=== PATIENT | male | born 1955 ===

== ENCOUNTER 2021-05-17 10:37 | Emergency (ER) | payer SELFPAY ==
[2021-05-17] MEDS ORDERED: Sodium Chloride 0.9% 10 ML Syringe FLUSH PRN (10:57)
[2021-05-17] MEDS ORDERED: Sodium Chloride 0.9% 2.5 ML Syringe FLUSH PRN (10:57)
--- NOTE | 2021-05-17 11:07 | EDM.PDOC ---
ED HPI GENERAL MEDICAL PROBLEM - General Chief Complaint: Respiratory Problem Stated Complaint: LOW OXEGYEN Time Seen by Provider: 05/17/21 10:50 Source of Information: Reports: Patient History Limitations: Reports: No Limitations - History of Present Illness INITIAL COMMENTS - FREE TEXT/NARRATIVE: 65-year-old male h/o Hep A presents with left-sided chest pain and hypoxia. He was tested positive for Covid on 05/07. Last night around 7 PM he started noticing sharp nonradiating left-sided chest pain his friend noted that he was satting 76% on room air. He was not vaccinated against Covid. He admits to feeling short of breath, sweats, malaise with a cough. His chest pain is rated 7/10. He denies fever, chills, back pain, abdominal pain. He is from [facility] and does not speak British. He has been here since November. History and review of system is limited secondary to language barrier, history obtained through bacteriology professor phone. Past medical history: No additional pertinent history Past Surgical history: No additional pertinent history Social history: No additional pertinent history Family history: No additional pertinent history PHYSICAL EXAM General: AOx4, GCS = 15, No distress HEENT: dry mucous membrane Neck: supple, no meningismus, no Kernig or Brudzinski Cardiac: S1S2 tachycardia Respiratory: CTAB, no crackles or rales, no wheezing Abdomen: Soft, nontender, no rebound or guarding, nondistended, no pulsatile mass. Back: nontender Musculoskeletal: NVI distally, no deformity Neuro: No focal deficits, CN 2 - 12 WNL. - Related Data Allergies Allergy/AdvReac Type Severity Reaction Status Date / Time No Known Allergies Allergy Verified 05/17/21 10:50 Home Meds: Home Meds Ibuprofen 200 mg PO 05/17/21 [History] ED ROS GENERAL - Review of Systems Review Of Systems: See Below (see dictation) ED EXAM, GENERAL - Physical Exam Exam: See Below (see dictation) #1 Interpretation EKG Interpretation Comments: Heart rate = 108 bpm, sinus tachycardia, normal QRS interval, V1 to V2 STEMI with Q waves. EKG and rhythm strip interpreted by me at 1108 #2 Interpretation EKG Interpretation Comments: Heart rate = 99 bpm, normal sinus rhythm, normal QRS interval, V1-V2 STEMI. TW inversion on III, AVF. EKG and rhythm strip interpreted by me at 1223 Course - Vital Signs Last Recorded V/S: Last Vital Signs Temp 97.0 F 05/17/21 10:58 Pulse 107 H 05/17/21 10:58 Resp 16 05/17/21 10:58 BP 132/96 H 05/17/21 12:20 Pulse Ox 95 05/17/21 10:58 - Orders/Labs/Meds Orders: Active Orders 24 hr Category Date Time Status EKG 12 Lead [EKG Documentation Completion] [RC] STAT Care 05/17/21 12:24 Active CTA Chest W WO Contrast [Ang Chest] [CT] Stat Exams 05/17/21 12:30 Ordered BLOOD GAS VENOUS [BG] Stat Lab 05/17/21 10:57 Ordered CULTURE BLOOD [BC] Stat Lab 05/17/21 10:58 Ordered CULTURE BLOOD [BC] Stat Lab 05/17/21 10:58 Ordered LACTATE SEPSIS W/ REFLEX [CHEM] Stat Lab 05/17/21 10:57 Ordered PROCALCITONIN [REF] Stat Lab 05/17/21 10:55 Received PTT,PARTIAL THROMBOPLSTIN TIME [COAG] Q6H Lab 05/17/21 11:45 Ordered PTT,PARTIAL THROMBOPLSTIN TIME [COAG] Q6H Lab 05/17/21 17:45 Ordered PTT,PARTIAL THROMBOPLSTIN TIME [COAG] Q6H Lab 05/17/21 23:45 Ordered PTT,PARTIAL THROMBOPLSTIN TIME [COAG] Q6H Lab 05/18/21 05:45 Ordered PTT,PARTIAL THROMBOPLSTIN TIME [COAG] Q6 Lab 05/18/21 11:45 Ordered PTT,PARTIAL THROMBOPLSTIN TIME [COAG] Q6H Lab 05/18/21 17:45 Ordered PTT,PARTIAL THROMBOPLSTIN TIME [COAG] Q6H Lab 05/18/21 23:45 Ordered UA RFX ALEXIS AND CULT IF INDIC [URIN] Stat Lab 05/17/21 10:57 Ordered Heparin Sodium/0.45% NaCl [Heparin 25,000 Units in 1/2 Med 05/17/21 11:45 Active NS 500 ML] 500 ml IV TITRATE Sodium Chloride 0.9% [Saline Flush] Med 05/17/21 10:57 Active 10 ml FLUSH ASDIRECTED PRN Sodium Chloride 0.9% [Saline Flush] Med 05/17/21 10:57 Active 2.5 ml FLUSH ASDIRECTED PRN Blood Culture x2 Reflex Set [OM.PC] Stat Oth 05/17/21 10:57 Ordered Saline Lock Insert [OM.PC] Stat Oth 05/17/21 10:57 Ordered Medication Orders Heparin Sodium/Sodium Chloride (Heparin 25,000 Units In 1/2 Ns 500 Ml) 500 mls @ 17.856 mls/hr IV TITRATE KAYLAH; Protocol Last Admin: 05/17/21 11:50 Dose: 12 units/kg/hr, 17.856 mls/hr Documented by: MADHAV Cosigned by: JESUS Sodium Chloride (Sodium Chloride 0.9% 10 Ml Syringe) 10 ml FLUSH ASDIRECTED PRN PRN Reason: Keep Vein Open Last Admin: 05/17/21 12:01 Dose: 10 ml Documented by: MADHAV Sodium Chloride (Sodium Chloride 0.9% 2.5 Ml Syringe) 2.5 ml FLUSH ASDIRECTED PRN PRN Reason: Keep Vein Open Last Admin: 05/17/21 12:29 Dose: 2.5 ml Documented by: MADHAV Labs: Laboratory Tests 05/17/21 05/17/21 05/17/21 Range/Units 10:55 10:55 10:55 WBC 8.59 (4.0-11.0) K/uL RBC 4.93 (4.50-5.90) M/uL Hgb 15.1 (13.0-17.0) g/dL Hct 41.1 (38.0-50.0) % MCV 83.4 (80.0-98.0) fL MCH 30.6 (27.0-32.0) pg MCHC 36.7 (31.0-37.0) g/dL RDW Std Deviation 41.5 (28.0-62.0) fl RDW Coeff of Johnny 14 (11.0-15.0) % Plt Count 332 (150-400) K/uL MPV 9.50 (7.40-12.00) fL Neut % (Auto) 87.1 H (48.0-80.0) % Lymph % (Auto) 9.4 L (16.0-40.0) % Jewell % (Auto) 3.4 (0.0-15.0) % Eos % (Auto) 0.0 (0.0-7.0) % Baso % (Auto) 0.1 (0.0-1.5) % Neut # (Auto) 7.5 H (1.4-5.7) K/uL Lymph # (Auto) 0.8 (0.6-2.4) K/uL Jewell # (Auto) 0.3 (0.0-0.8) K/uL Eos # (Auto) 0.0 (0.0-0.7) K/uL Baso # (Auto) 0.0 (0.0-0.1) K/uL Nucleated RBC % 0.0 /100WBC Nucleated RBCs # 0 K/uL D-Dimer, Quantitative > 35.20 H (0.0-0.50) mg/L FEU Sodium 125 L (136-148) mmol/L Potassium 4.7 (3.5-5.1) mmol/L Chloride 89 L (98-107) mmol/L Carbon Dioxide 22.3 (21.0-32.0) mmol/L BUN 25 H (7.0-18.0) mg/dL Creatinine 1.0 (0.8-1.3) mg/dL Est Cr Clr Drug Dosing 63.11 mL/min Estimated GFR (MDRD) > 60.0 ml/min Glucose 142 H (74-106) mg/dL Calcium 7.9 L (8.5-10.1) mg/dL Ferritin (26-388) ng/mL Total Bilirubin 0.8 (0.2-1.0) mg/dL AST 115 H (15-37) IU/L ALT 129 H (14-63) IU/L Alkaline Phosphatase 222 H (46-116) U/L Lactate Dehydrogenase (81-234) U/L Troponin I 5.305 H* (0.000-0.056) ng/mL Total Protein 6.8 (6.4-8.2) g/dL Albumin 2.5 L (3.4-5.0) g/dL Globulin 4.3 H (2.6-4.0) g/dL Albumin/Globulin Ratio 0.6 L (0.9-1.6) 05/17/21 05/17/21 Range/Units 10:55 10:55 WBC (4.0-11.0) K/uL RBC (4.50-5.90) M/uL Hgb (13.0-17.0) g/dL Hct (38.0-50.0) % MCV (80.0-98.0) fL MCH (27.0-32.0) pg MCHC (31.0-37.0) g/dL RDW Std Deviation (28.0-62.0) fl RDW Coeff of Johnny (11.0-15.0) % Plt Count (150-400) K/uL MPV (7.40-12.00) fL Neut % (Auto) (48.0-80.0) % Lymph % (Auto) (16.0-40.0) % Jewell % (Auto) (0.0-15.0) % Eos % (Auto) (0.0-7.0) % Baso % (Auto) (0.0-1.5) % Neut # (Auto) (1.4-5.7) K/uL Lymph # (Auto) (0.6-2.4) K/uL Jewell # (Auto) (0.0-0.8) K/uL Eos # (Auto) (0.0-0.7) K/uL Baso # (Auto) (0.0-0.1) K/uL Nucleated RBC % /100WBC Nucleated RBCs # K/uL D-Dimer, Quantitative (0.0-0.50) mg/L FEU Sodium (136-148) mmol/L Potassium (3.5-5.1) mmol/L Chloride (98-107) mmol/L Carbon Dioxide (21.0-32.0) mmol/L BUN (7.0-18.0) mg/dL Creatinine (0.8-1.3) mg/dL Est Cr Clr Drug Dosing mL/min Estimated GFR (MDRD) ml/min Glucose (74-106) mg/dL Calcium (8.5-10.1) mg/dL Ferritin 3333 H (26-388) ng/mL Total Bilirubin (0.2-1.0) mg/dL AST (15-37) IU/L ALT (14-63) IU/L Alkaline Phosphatase (46-116) U/L Lactate Dehydrogenase 741 H (81-234) U/L Troponin I (0.000-0.056) ng/mL Total Protein (6.4-8.2) g/dL Albumin (3.4-5.0) g/dL Globulin (2.6-4.0) g/dL Albumin/Globulin Ratio (0.9-1.6) Meds: Medications Generic Name Dose Route Start Last Admin Trade Name Lázaro PRN Reason Stop Dose Admin Heparin Sodium/Sodium Chloride 500 mls @ 17.856 mls/hr 05/17/21 11:45 05/17/21 11:50 Heparin 25,000 Units In /2 Ns 500 Ml IV 12 units/kg/hr TITRATE KAYLAH 17.856 mls/hr Administration Protocol 12 UNITS/KG/HR Sodium Chloride 10 ml 05/17/21 10:57 05/17/21 12:01 Sodium Chloride 0.9% 10 Ml Syringe FLUSH 10 ml ASDIRECTED PRN Administration Keep Vein Open Sodium Chloride 2.5 ml 05/17/21 10:57 05/17/21 12:29 Sodium Chloride 0.9% 2.5 Ml Syringe FLUSH 2.5 ml ASDIRECTED PRN Administration Keep Vein Open Discontinued Medications Generic Name Dose Route Start Last Admin Trade Name Lázaro PRN Reason Stop Dose Admin Aspirin 324 mg 05/17/21 11:36 05/17/21 11:46 Aspirin 81 Mg Tab.Chew PO 05/17/21 11:37 324 mg ONETIME ONE Administration Clopidogrel Bisulfate 600 mg 05/17/21 11:36 05/17/21 11:47 Clopidogrel 75 Mg Tab PO 05/17/21 11:37 600 mg ONETIME ONE Administration Heparin Sodium (Porcine) 4,000 units 05/17/21 11:37 05/17/21 11:47 Heparin Sodium 5,000 Units/Ml Vial IVPUSH 05/17/21 11:38 4,000 units .BOLUS ONE Administration Heparin Sodium (Porcine) 1,000 units 05/17/21 12:34 Heparin Sodium 5,000 Units/Ml Vial IVPUSH 05/17/21 12:35 ONETIME ONE Nitroglycerin 0.4 mg 05/17/21 11:40 05/17/21 12:20 Nitroglycerin 0.4 Mg Tab.Sl SL 0.4 mg Q5M PRN Administration Chest Pain Nitroglycerin 1 gm 05/17/21 12:23 Nitroglycerin 2% Oint 1 Gm Ud Packet TOP 05/17/21 12:24 ONETIME ONE Tenecteplase 40 mg 05/17/21 12:09 05/17/21 12:22 Tenecteplase 50 Mg Kit IV 05/17/21 12:10 40 mg STAT STA Administration Protocol - Re-Assessments/Exams Free Text/Narrative Re-Assessment/Exam: 05/17/21 11:[address] Brown, on-call for cardiology at [facility], he looked to the EKG personally and recommends heparin and aspirin, he does not recommend TNKase at this time. Patient will require transfer to outside facility for the need of higher level of care not available at this facility, and the need for clinical operations consultant s ervices unavailable at this facility. Any emergency conditions have been stabilized to the ability of the ED prior to the transfer. Case was discussed and accepted by Dr. Ferguson at [facility] ER, will accept transfer. 05/17/21 11:46 Patient given ASA 324 mg, Plavix, nitroglycerin sublingual x3, heparin bolus and drip. Patient satting 95% on HFNC at 58% FiO2 05/17/21 12:05 Troponin resulted at 5.305, Dr. Brown is made aware of this lab finding and now recommends TNKase. 05/17/21 12:11 I reassessed the patient, his chest pain after 1 sublingual nitroglycerin is down to 4/10. 05/17/21 12:23 After 3 sublingual nitroglycerin, chest pain down to 2/10, will repeat EKG and apply 1 inch Nitropaste. 05/17/21 12:25 Fixed-Wing is available with guardian with ETA of 2 hr, no rotor available with guardian. Will call [employer]atum for flight 05/17/21 12:41 Departure - Departure Time of Disposition: 11:44 Disposition: DC/Tfer to Acute Hospital 02 Condition: Serious Clinical Impression: STEMI (ST elevation myocardial infarction), COVID-19, Hypoxia, Chest pain, Hyponatremia, Transaminitis - Discharge Information *PRESCRIPTION DRUG MONITORING PROGRAM REVIEWED*: Not Applicable *COPY OF PRESCRIPTION DRUG MONITORING REPORT IN PATIENT EDDIE: Not Applicable Instructions: COVID-19 Vaccine Information Referrals: PCP,None [Primary Care Provider] - Forms: ED Department Discharge Critical Care Note - Critical Care Note Comments: CRITCAL CARE: The high probability of sudden, clinically significant deterioration in the patient's condition required the highest level of my preparedness to intervene urgently. The services I provided to this patient were to treat and/or prevent clinically significant deterioration. Services included the following: chart data review, reviewing nursing notes and/or old charts, documentation time, natural remedy consultant collaboration regarding findings and treatment options, medication orders and management, direct patient care, vital sign assessments and ordering, interpreting and reviewing diagnostic studies/lab tests. Aggregate critical care time includes only time during which I was engaged in work directly related to the patient's care, as described above, whether at the bedside or elsewhere in the Emergency Department. It did not include time spent performing other reported procedures or the services of residents, students, nurses or physician assistants. Frequent interventions and/or frequent repeat evaluations were required as well as counseling and coordination of care regarding prognosis, treatments, and discussions with patient, staff and consultants. Critical Care (excluding other procedures): 40 minutes Sepsis Event Note (ED) - Focused Exam Vital Signs: Vital Signs Temp Pulse Resp BP BP Pulse Ox 05/17/21 12:20 132/96 H 05/17/21 12:01 132/96 H 05/17/21 11:55 156/104 H 05/17/21 10:58 97.0 F 107 H 16 149/107 H 95 - My Orders Last 24 Hours: My Active Orders 05/17/21 10:55 PROCALCITONIN [REF] Stat 05/17/21 11:45 PTT,PARTIAL THROMBOPLSTIN TIME [COAG] Q6H Heparin Sodium/0.45% NaCl [Heparin 25,000 Units in 1/2 NS 500 ML] 500 ml IV TITRATE 05/17/21 12:24 EKG 12 Lead [EKG Documentation Completion] [RC] STAT 05/17/21 12:30 CTA Chest W WO Contrast [Ang Chest] [CT] Stat 05/17/21 17:45 PTT,PARTIAL THROMBOPLSTIN TIME [COAG] Q6H 05/17/21 23:45 PTT,PARTIAL THROMBOPLSTIN TIME [COAG] Q6H 05/18/21 05:45 PTT,PARTIAL THROMBOPLSTIN TIME [COAG] Q6H 05/18/21 11:45 PTT,PARTIAL THROMBOPLSTIN TIME [COAG] Q6H 05/18/21 17:45 PTT,PARTIAL THROMBOPLSTIN TIME [COAG] Q6H 05/18/21 23:45 PTT,PARTIAL THROMBOPLSTIN TIME [COAG] Q6H - Assessment/Plan Last 24 Hours: My Active Orders 05/17/21 10:55 PROCALCITONIN [REF] Stat 05/17/21 11:45 PTT,PARTIAL THROMBOPLSTIN TIME [COAG] Q6H Heparin Sodium/0.45% NaCl [Heparin 25,000 Units in 1/2 NS 500 ML] 500 ml IV TITRATE 05/17/21 12:24 EKG 12 Lead [EKG Documentation Completion] [RC] STAT 05/17/21 12:30 CTA Chest W WO Contrast [Ang Chest] [CT] Stat 05/17/21 17:45 PTT,PARTIAL THROMBOPLSTIN TIME [COAG] Q6H 05/17/21 23:45 PTT,PARTIAL THROMBOPLSTIN TIME [COAG] Q6H 05/18/21 05:45 PTT,PARTIAL THROMBOPLSTIN TIME [COAG] Q6H 05/18/21 11:45 PTT,PARTIAL THROMBOPLSTIN TIME [COAG] Q6H 05/18/21 17:45 PTT,PARTIAL THROMBOPLSTIN TIME [COAG] Q6H 05/18/21 23:45 PTT,PARTIAL THROMBOPLSTIN TIME [COAG] Q6H
[2021-05-17] MEDS ORDERED: Aspirin 81 MG Tab.Chew PO ONE (11:36)
[2021-05-17] MEDS ORDERED: Clopidogrel 75 MG Tab PO ONE (11:36)
[2021-05-17] MEDS ORDERED: Heparin Sodium 5,000 Units/ML Vial IVPUSH ONE ×2 (11:37→12:34)
[2021-05-17 11:44] LABS: BLOOD UREA NITROGEN,BUN 25 mg/dL (7.0-18.0); CARBON DIOXIDE,CO2 22.3 mmol/L (21.0-32.0); CHLORIDE,CL 89 mmol/L (98-107); GLUCOSE RANDOM 142 mg/dL (74-106); POTASSIUM,K 4.7 mmol/L (3.5-5.1); SODIUM,NA 125 mmol/L (136-148)
[2021-05-17] MEDS ORDERED: Heparin Sodium/0.45% NaCl 500 ML IV SCH (11:45)
[2021-05-17] MEDS: Nitroglycerin 0.4 MG Tab.SL SL PRN ×3 (11:55→12:20)
[2021-05-17] MEDS ORDERED: Tenecteplase 50 MG Kit IV STA (12:09)
[2021-05-17] MEDS ORDERED: Nitroglycerin 2% Oint 1 GM UD Packet TOP ONE (12:23)
--- NOTE | 2021-05-17 12:27 | CR ---
INDICATION: Hypoxia. TECHNIQUE: Chest 1 view. COMPARISON: None. FINDINGS: There are patchy and interstitial opacities throughout the lungs bilaterally, greatest in the mid lungs. Findings could be infectious/inflammatory versus edema. No pleural effusion or pneumothorax. Normal heart size. The bones are unremarkable. IMPRESSION: Patchy and interstitial opacities throughout the lungs bilaterally could be infectious/inflammatory versus edema. Dictated by Olimpia Fernandez MD @ 05/17/2021 12:26:12 PM (Electronically Signed)
== END 2021-05-17 13:15 ==
LOC: MW.ED 10:37
DX: U07.1 COVID-19 (principal); I21.3 ST elevation (STEMI) myocardial infarction of unspecified site; R09.02 Hypoxemia; E87.1 Hypo-osmolality and hyponatremia; R74.01 Elevation of levels of liver transaminase levels; R00.0 Tachycardia, unspecified
CPT/HCPCS: 36415; 71045; 80053; 82728; 82803; 83605; 83615; 84145; 84484; 85025; 85379; 87040; 92977; 93005; 96365; 99285; A9270; J1644; J3101